=== PATIENT | female | born 1965 | race Caucasian/White ===

== ENCOUNTER 2016-09-13 09:12 | Emergency (ER) | payer MEDICARE ==
[~2016-09-13] VITALS: Ht 167.6 cm; Wt 89.0 kg
[2016-09-13 09:19] VITALS: BP 158/89; PULSE 96; RESP 15; TEMP 99; O2SAT 98
[2016-09-13] MEDS ORDERED: SODIUM CHLOR 0.9% 1000 ML INJ 1,000 ML IV SCH (09:25)
[2016-09-13] MEDS ORDERED: OMEP20TA PO (09:27)
[2016-09-13] MEDS ORDERED: LEVO100T5 PO (09:27)
--- NOTE | 2016-09-13 09:27 | PD ---
HPI Chief Complaint: Abdominal Pain Time Seen by Provider: 09:24 Travel History International Travel<30 days: No Contact w/Intl Traveler<30days: No Traveled to known affect area: No History of Present Illness HPI 50-year-old female with history of previous cholecystectomy in December, with stent placement later, has been having chronic intermittent abdominal pains, worse today. She states that she is having an 8 out of 10 epigastric and right upper quadrant abdominal pain. She has been nauseous, but denies any vomiting or diarrhea. She states she has some loose bowels but that has been chronic as well. She states that she was post to see a GI doctor but never followed up. She has not noticed any exacerbating or alleviating factors. Modifying Factors: None Associated Signs & Symptoms: Epigastric and right upper quadrant abdominal pain with nausea Risk Factors: History of cholecystectomy, stents PFSH Past Medical History ?: Not Social History Tobacco Use: No Allergies-Medications (Allergen,Severity, Reaction): Coded Allergies: Aspirin (Verified Allergy, Unknown, 09/13/16) Nonsteroidal Anti-Inflammatory Agts (Verified Allergy, Unknown, 09/13/16) Reported Meds & Prescriptions Reported Meds & Active Scripts Active Reported Levothyroxine (Levothyroxine Sodium) 100 Mcg Tab 100 Mcg PO DAILY Omeprazole 20 Mg Tab 20 Mg PO DAILY Review of Systems Except as stated in HPI: all other systems reviewed are Neg Physical Exam Narrative GENERAL: [Well-developed middle age white female patient in mild distress. Awake and oriented 3. SKIN: Focused skin assessment warm/dry. HEAD: Atraumatic. Normocephalic. EYES: Pupils equal and round. No scleral icterus. No injection or drainage. ENT: No nasal bleeding or discharge. Mucous membranes pink and moist. NECK: Trachea midline. No JVD. CARDIOVASCULAR: Regular rate and rhythm. No murmur appreciated. RESPIRATORY: No accessory muscle use. Clear to auscultation. Breath sounds equal bilaterally. GASTROINTESTINAL: Abdomen soft, epigastric and mild right upper quadrant tenderness without guarding or rebound, nondistended. Hepatic and splenic margins not palpable. MUSCULOSKELETAL: No obvious deformities. No clubbing. No cyanosis. No edema. NEUROLOGICAL: Awake and alert. No obvious cranial nerve deficits. Motor grossly within normal limits. Normal speech. PSYCHIATRIC: Appropriate mood and affect; insight and judgment normal. Data Data Last Documented VS Vital Signs Date Time Temp Pulse Resp B/P Pulse Ox O2 Delivery O2 Flow Rate FiO2 09/13/16 09:28 98 Room Air 09/13/16 09:19 99.0 96 15 158/89 Orders Complete Blood Count With Diff (09/13/16 09:25) Comprehensive Metabolic Panel (09/13/16 09:25) Lipase (09/13/16 09:25) Urinalysis - C+S If Indicated (09/13/16 09:25) Ct Abd/Pel W Iv Contrast(Rout) (09/13/16 09:25) Iv Access Insert/Monitor (09/13/16 09:25) Ecg Monitoring (09/13/16:25) Oximetry (09/13/16 09:25) Ondansetron Inj (Zofran Inj) (09/13/16 09:30) Sodium Chlor 0.9% 1000 Ml Inj (Ns 1000 M (09/13/16 09:25) Sodium Chloride 0.9% Flush (Ns Flush) (09/13/16 09:30) Hydromorphone Pf Inj (Dilaudid Pf Inj) (09/13/16 09:30) Iohexol 350 Inj (Omnipaque 350 Inj) (09/13/16 11:03) Labs Laboratory Tests Test 09/13/16 09/13/16 09:45 10:30 White Blood Count 4.4 TH/MM3 Red Blood Count 3.67 MIL/MM3 Hemoglobin 11.1 GM/DL Hematocrit 32.8 % Mean Corpuscular Volume 89.4 FL Mean Corpuscular Hemoglobin 30.1 PG Mean Corpuscular Hemoglobin 33.7 % Concent Red Cell Distribution Width 13.8 % Platelet Count 215 TH/MM3 Mean Platelet Volume 9.1 FL Neutrophils (%) (Auto) 53.2 % Lymphocytes (%) (Auto) 35.6 % Monocytes (%) (Auto) 6.1 % Eosinophils (%) (Auto) 4.5 % Basophils (%) (Auto) 0.6 % Neutrophils # (Auto) 2.3 TH/MM3 Lymphocytes # (Auto) 1.6 TH/MM3 Monocytes # (Auto) 0.3 TH/MM3 Eosinophils # (Auto) 0.2 TH/MM3 Basophils # (Auto) 0.0 TH/MM3 CBC Comment DIFF FINAL Differential Comment Sodium Level 145 MEQ/L Potassium Level 3.4 MEQ/L Chloride Level 111 MEQ/L Carbon Dioxide Level 27.3 MEQ/L Anion Gap 7 MEQ/L Blood Urea Nitrogen 10 MG/DL Creatinine 0.70 MG/DL Estimat Glomerular Filtration 89 ML/MIN Rate Random Glucose 87 MG/DL Calcium Level 8.2 MG/DL Total Bilirubin 0.3 MG/DL Aspartate Amino Transf 15 U/L (AST/SGOT) Alanine Aminotransferase 15 U/L (ALT/SGPT) Alkaline Phosphatase 61 U/L Total Protein 5.6 GM/DL Albumin 2.9 GM/DL Lipase 91 U/L Urine Color YELLOW Urine Turbidity CLEAR Urine pH 6.0 Urine Specific [place] 1.025 Urine Protein TRACE mg/dL Urine Glucose (UA) NEG mg/dL Urine Ketones NEG mg/dL Urine Occult Blood NEG Urine Nitrite NEG Urine Bilirubin NEG Urine Urobilinogen 2.0 MG/DL Urine Leukocyte Esterase TRACE Urine RBC 1 /hpf Urine WBC 3 /hpf Urine Squamous Epithelial 3 /hpf Cells Urine Bacteria RARE /hpf Urine Mucus FEW /lpf Microscopic Urinalysis Comment CULT NOT INDICATED MDM Medical Decision Making Medical Screen Exam Complete: Yes Emergency Medical Condition: Yes Medical Record Reviewed: Yes Interpretation(s) Laboratory Tests Test 09/13/16 09/13/16 09:45 10:30 Red Blood Count 3.67 MIL/MM3 (4.00-5.30) Hemoglobin 11.1 GM/DL (11.6-15.3) Hematocrit 32.8 % (35.0-46.0) Eosinophils (%) (Auto) 4.5 % (0.0-4.0) Potassium Level 3.4 MEQ/L (3.5-5.1) Chloride Level 111 MEQ/L (98-107) Calcium Level 8.2 MG/DL (8.5-10.1) Total Protein 5.6 GM/DL (6.4-8.2) Albumin 2.9 GM/DL (3.4-5.0) Urine Leukocyte Esterase TRACE (NEG) Urine Bacteria RARE /hpf (NONE) Urine Mucus FEW /lpf (OCC) Last 24 hours Impressions Abdomen/Pelvis CT 09/13/16 0988 Signed Impressions: Service Date/Time: Tuesday, September 13, 2016 10:59 - CONCLUSION: Essentially unremarkable study. Hector Fraser MD Differential Diagnosis Right upper quadrant epigastric abdominal painsgastroenteritis versus gastritis versus hepatitis versus other acute intra-abdominal processes Narrative Course Labwork and CAT scan was unremarkable for any signs of acute processes. At this point, my plan would be to release the patient with follow-up to GI doctor. Return for any worsening in symptoms as needed. The plan has been discussed with the patient and she states understanding. Diagnosis Primary Impression: Chronic abdominal pain Med/Other Pt SpecificInfo: Prescription(s) given Scripts Ondansetron Odt (Zofran Odt)4 Mg Tab4 Mg SL Q6HR PRN (Nausea/Vomiting) #7 TAB Ref 0 Prov:Guy Ayers MD 09/13/16 Dicyclomine (Bentyl)10 Mg Cap10 Mg PO TID #20 CAP Ref 0 Prov:Guy Ayers MD 09/13/16 Disposition: 01 DISCHARGE HOME Condition: Stable Guy Ayers MD Sep 13, 2016 09:27
[2016-09-13 09:28] VITALS: O2SAT 98
[2016-09-13] MEDS ORDERED: HYDROmorphone HCL PF 1 MG/ML VIAL IVS ONE (09:30)
[2016-09-13] MEDS ORDERED: SODIUM CHLORIDE 0.9% FLUSH 10 ML FLUSH IV FLUSH PRN (09:30)
[2016-09-13] MEDS ORDERED: ONDANSETRON HCL 4 MG/2 ML VIAL IVP ONE (09:30)
[2016-09-13 10:06] LABS: AUTOMATED NEUTROPHIL # 2.3 TH/MM3 (1.8-7.7); BASOPHIL % 0.6 % (0.0-2.0); EOSINOPHIL # 0.2 TH/MM3 (0-0.4); EOSINOPHIL % 4.5 % (0.0-4.0); HEMATOCRIT 32.8 % (35.0-46.0); HEMO FLAGS DIFF FINAL; LYMPH % 35.6 % (9.0-44.0); LYMPHOCYTE # 1.6 TH/MM3 (1.0-4.8); MEAN CELL VOLUME 89.4 FL (80.0-100.0); MEAN CORPUSCULAR HEMOGLOBIN 30.1 PG (27.0-34.0); MEAN CORPUSCULAR HGB CONC 33.7 % (32.0-36.0); MONO % 6.1 % (0.0-8.0); NEUT % 53.2 % (16.0-70.0); PLATELET COUNT 215 TH/MM3 (150-450); RED BLOOD COUNT 3.67 MIL/MM3 (4.00-5.30); RED CELL DISTRIBUTION WIDTH 13.8 % (11.6-17.2); WHITE BLOOD COUNT 4.4 TH/MM3 (4.0-11.0)
[2016-09-13 10:27] LABS: ANION GAP 7 MEQ/L (5-15); AST (GOT) 15 U/L (15-37); BICARBONATE 27.3 MEQ/L (21.0-32.0); BLOOD UREA NITROGEN 10 MG/DL (7-18); CHLORIDE 111 MEQ/L (98-107); GLOMERULAR FILTRATION RATE 89 ML/MIN (>89); POTASSIUM 3.4 MEQ/L (3.5-5.1); SODIUM (NA) 145 MEQ/L (136-145)
[2016-09-13 10:28] LABS: ALT (GPT) 15 U/L (10-53)
[2016-09-13 10:30] LABS: ALKALINE PHOSPHATASE 61 U/L (45-117); TOTAL BILIRUBIN ADULT 0.3 MG/DL (0.2-1.0)
[2016-09-13 10:55] LABS: BACTERIA, URINE RARE /hpf; BLOOD, URINE NEG (NEG); COMMENT (UR) CULT NOT INDICATED; CULTURE IF INDICATED CULT NOT INDICATED; GLUCOSE,URINE NEG (NEG); KETONE, URINE NEG (NEG); MUCUS URINE FEW /lpf (OCC); NITRITE,URINE NEG (NEG); SQUAMOUS EPITHELIAL CELL URINE 3 /hpf (0-5); URINE COLOR YELLOW (YELLW/STRAW)
[2016-09-13] MEDS ORDERED: IOHEXOL 350 MG/ML 10 ML VIAL (for RAD DIAG) IV ONE (11:03)
--- NOTE | 2016-09-13 11:38 | RADRPT ---
EXAM DATE/TIME: 09/13/2016 10:59 [facility] COMPARISON: No previous studies available for comparison. INDICATIONS : Upper abdominal pain. IV CONTRAST: 95 cc Omnipaque 350 (iohexol) IV ORAL CONTRAST: No oral contrast ingested. RADIATION DOSE: 14.81 CTDIvol (mGy) MEDICAL HISTORY : None SURGICAL HISTORY : Cholecystectomy. Hysterectomy. ENCOUNTER: Initial ACUITY: 1 day PAIN SCALE: 7/10 LOCATION: Bilateral upper quadrant TECHNIQUE: Volumetric scanning of the abdomen and pelvis was performed. Using automated exposure control and adjustment of the mA and/or kV according to patient size, radiation dose was kept as low as reasonably achievable to obtain optimal diagnostic quality images. DICOM format image data is av ailable electronically for review and comparison. FINDINGS: CT Abdomen: The liver, spleen, pancreas, kidneys, adrenals are unremarkable. There is no evidence for any appreciable pathological adenopathy, free fluid, or bowel obstruction. There is evidence for pr ior cholecystectomy. Slight dependent atelectasis is seen in both lung bases posteriorly. CT pelvis: There is no evidence for mass, abscess formation, or any significant adenopathy within the pelvis. CONCLUSION: Essentially unremarkable study. Hector Fraser MD on September 13, 2016 at 11:19 Board Certified Radiologist. This report was verified electronically.
[2016-09-13] MEDS ORDERED: DICY10 PO (12:02)
[2016-09-13] MEDS ORDERED: ZOFR4TAB3 SL (12:02)
== END 2016-09-13 12:49 | disposition home or self-care (01) ==
LOC: NEPE 09:12
DX: R10.13 Epigastric pain (principal); R10.11 Right upper quadrant pain; G89.29 Other chronic pain; R11.0 Nausea
CPT/HCPCS: 74177; 80053; 81001; 83690; 85025; 96361; 96374; 96375; 99285; J1170; J2405; J7030; Q9967